=== PATIENT | male | born 1970 | race Two or more races ===

== ENCOUNTER 2022-09-17 06:19 | Inpatient (IN) | payer MEDICAID, OTHER ==
[~2022-09-17] VITALS: Ht 180.3 cm; Wt 72.8 kg
[2022-09-17 07:44] LABS: Basophils # (auto) 0 10 ^3/uL (0-0.2); Basophils % (auto) 0.5 % (0.0-2.0); Eosinophils # (auto) 0 10 ^3/uL (0-0.8); Eosinophils % (auto) 0.7 % (0.0-7.0); Hemoglobin 13.7 g/dL (13.5-17.5); Lymphocytes # (auto) 1.3 10 ^3/uL (0.4-5.4); Lymphocytes % (auto) 17.3 % (10.0-50.0); Mean Corpuscular Volume 85.5 fL (80.0-100.0); Monocytes # (auto) 0.4 10 ^3/uL (0-1.3); Monocytes % (auto) 5.6 % (0.0-12.0); Neutrophils # (auto) 5.6 10 ^3/uL (1.6-8.6); Neutrophils % (auto) 75.9 % (37.0-80.0); Nucleated Red Blood Cells % 0.2 %; Red Blood Cells 4.56 10^6/uL (4.5-5.90); Red Cell Distribution Width 12.8 % (11.8-14.3); White Blood Cell 7.3 10^3/uL (4.4-10.8)
[2022-09-17 07:59] LABS: Partial Thromboplastin Time 68.9 SEC (24.5-34.5)
[2022-09-17 08:03] LABS: INR 4.27 (0.9-1.15)
[2022-09-17 08:39] LABS: Albumin 3.5 g/dL (3.4-5.0); Calcium 9.6 mg/dL (8.5-10.1); Potassium 3.6 mmol/L (3.5-5.1)
[2022-09-17 08:43] LABS: Bilirubin, Total 0.6 mg/dL (0.2-1.0); Total Protein 7.4 g/dL (6.4-8.2); Uric Acid 5.6 mg/dL (3.5-7.2)
[2022-09-17] MEDS ORDERED: PHYTONADIONE (VIT K)10 MG/ML 1ML VIAL SUBCUT ONE (09:15)
[2022-09-17] MEDS: ONDANSETRON HCL 4 MG/2 ML VIAL IV PRN ×2 (15:15→20:35)
[2022-09-17] MEDS: MORPHINE SULFATE INJ 2 MG/ml SYRG IV PRN ×2 (15:15→20:36)
[2022-09-17] MEDS: SODIUM CHLORIDE 0.9% 1,000 ML IV SCH ×2 (15:15→18:20)
[2022-09-17] MEDS: PIPERACILLIN-TAZOB 3.375GM 100 ML IV SCH ×2 (20:31→23:00)
[2022-09-18 00:40] VITALS: PULSE 86; RESP 20; O2SAT 100
[2022-09-18] MEDS ORDERED: WARF-66 PO (01:08)
[2022-09-18] MEDS: ONDANSETRON HCL 4 MG/2 ML VIAL IV PRN (01:52)
[2022-09-18] MEDS: MORPHINE SULFATE INJ 2 MG/ml SYRG IV PRN ×3 (02:00→11:08)
[2022-09-18] MEDS: SODIUM CHLORIDE 0.9% 1,000 ML IV SCH ×3 (02:54→19:20)
[2022-09-18 05:00] VITALS: BP 92/59; PULSE 105; RESP 20; TEMP 98.3; O2SAT 99
[2022-09-18] MEDS: PIPERACILLIN-TAZOB 3.375GM 100 ML IV SCH ×4 (05:49→23:03)
[2022-09-18 07:46] LABS: Basophils # (auto) 0.1 10 ^3/uL (0-0.2); Basophils % (auto) 1.2 % (0.0-2.0); Eosinophils # (auto) 0.1 10 ^3/uL (0-0.8); Eosinophils % (auto) 1.9 % (0.0-7.0); Hematocrit 36.8 % (41.0-53.0); Hemoglobin 12.7 g/dL (13.5-17.5); Lymphocytes # (auto) 0.8 10 ^3/uL (0.4-5.4); Lymphocytes % (auto) 11.6 % (10.0-50.0); Mean Corpuscular Hemoglobin 29.7 pg (28.0-32.0); Mean Corpuscular Hgb Conc. 34.4 g/dL (32.0-36.0); Mean Corpuscular Volume 86.1 fL (80.0-100.0); Monocytes # (auto) 0.2 10 ^3/uL (0-1.3); Monocytes % (auto) 3.4 % (0.0-12.0); Neutrophils # (auto) 5.3 10 ^3/uL (1.6-8.6); Neutrophils % (auto) 81.9 % (37.0-80.0); Nucleated Red Blood Cells % 0.1 %; Red Blood Cells 4.27 10^6/uL (4.5-5.90); Red Cell Distribution Width 13.1 % (11.8-14.3); White Blood Cell 6.5 10^3/uL (4.4-10.8)
[2022-09-18 08:00] VITALS: BP 146/94; PULSE 84; RESP 18; TEMP 99; O2SAT 97
[2022-09-18 08:05] LABS: Potassium 3.9 mmol/L (3.5-5.1)
[2022-09-18 08:17] LABS: Albumin 3.1 g/dL (3.4-5.0); Bilirubin, Total 0.9 mg/dL (0.2-1.0); Calcium 8.9 mg/dL (8.5-10.1)
[2022-09-18 08:44] LABS: INR 1.45 (0.9-1.15)
[2022-09-18 09:24] LABS: Urine Bacteria FEW /hpf (None Seen); Urine Blood TRACE /uL (Negative); Urine Hyaline Cast FEW /lpf (0 - 2); Urine Mucus FEW (None Seen); Urine Specific Gravity 1.013 (1.001-1.035); Urine WBC <1 /hpf (0 - 3)
[2022-09-18 12:00] VITALS: BP 146/91; PULSE 85; RESP 16; TEMP 98.3; O2SAT 99
[2022-09-18] MEDS: OXYCODONE W/ ACETAMINOPHEN 5/325MG TABLET PO PRN ×3 (13:19→21:49)
[2022-09-18 16:00] VITALS: BP 129/83; PULSE 89; RESP 18; TEMP 97.7; O2SAT 94
[2022-09-18 22:00] VITALS: BP 147/93; PULSE 103; RESP 17; TEMP 97.8; O2SAT 95
[2022-09-19] MEDS: SODIUM CHLORIDE 0.9% 1,000 ML IV SCH ×3 (03:40→20:44)
[2022-09-19] MEDS: OXYCODONE W/ ACETAMINOPHEN 5/325MG TABLET PO PRN ×3 (03:48→18:47)
[2022-09-19 05:00] VITALS: BP 129/97; PULSE 91; RESP 18; TEMP 98.2; O2SAT 98
[2022-09-19] MEDS: PIPERACILLIN-TAZOB 3.375GM 100 ML IV SCH ×3 (05:11→18:38)
[2022-09-19 08:05] VITALS: PULSE 88; RESP 18; O2SAT 98
[2022-09-19 08:52] VITALS: BP 127/76; PULSE 69; RESP 14; TEMP 97.9; O2SAT 98
[2022-09-19 13:00] VITALS: BP 132/92; PULSE 103; RESP 14; TEMP 98.4; O2SAT 97
[2022-09-19 16:53] VITALS: BP_SYST 107; BP_SYST 130; BP_DIAS 80; BP_DIAS 81; PULSE 108; RESP 16; TEMP 97.7; O2SAT 98
[2022-09-19 22:00] VITALS: BP 134/86; PULSE 66; RESP 19; TEMP 98.4; O2SAT 95
[2022-09-20] VITALS (7 sets, daily range): BP systolic 114–124; BP diastolic 76–87; PULSE 88–103; RESP 18–20; TEMP 98.2–98.3; O2SAT 96–98
[2022-09-20] MEDS: OXYCODONE W/ ACETAMINOPHEN 5/325MG TABLET PO PRN ×5 (00:18→22:59)
[2022-09-20] MEDS: SODIUM CHLORIDE 0.9% 1,000 ML IV SCH ×3 (00:20→23:00)
[2022-09-20] MEDS: PIPERACILLIN-TAZOB 3.375GM 100 ML IV SCH ×4 (01:14→18:31)
[2022-09-21] MEDS: PIPERACILLIN-TAZOB 3.375GM 100 ML IV SCH ×4 (01:23→19:37)
[2022-09-21 05:00] VITALS: BP 120/73; PULSE 89; RESP 19; TEMP 98.2; O2SAT 99
[2022-09-21] MEDS: OXYCODONE W/ ACETAMINOPHEN 5/325MG TABLET PO PRN ×4 (05:09→22:01)
[2022-09-21] MEDS: SODIUM CHLORIDE 0.9% 1,000 ML IV SCH ×3 (06:20→22:02)
[2022-09-21 09:35] VITALS: BP 117/82; PULSE 95; RESP 20; TEMP 98; O2SAT 97
[2022-09-21 09:43] LABS: INR 1.05 (0.9-1.15); Partial Thromboplastin Time 29.5 SEC (24.5-34.5)
[2022-09-21 13:00] VITALS: BP 123/85; PULSE 100; RESP 20; TEMP 98; O2SAT 97
[2022-09-21 16:20] VITALS: BP 113/86; PULSE 91; RESP 20; TEMP 98.3; O2SAT 96
[2022-09-21] MEDS ORDERED: WARFARIN SODIUM 5 MG TAB PO ONE (17:00)
[2022-09-21 20:00] VITALS: PULSE 90; RESP 17; O2SAT 97
[2022-09-21 22:00] VITALS: BP 114/83; PULSE 93; RESP 17; TEMP 98.5; O2SAT 97
[2022-09-22] MEDS: OXYCODONE W/ ACETAMINOPHEN 5/325MG TABLET PO PRN ×5 (01:42→21:02)
[2022-09-22] MEDS: PIPERACILLIN-TAZOB 3.375GM 100 ML IV SCH ×4 (01:42→18:46)
[2022-09-22 05:00] VITALS: BP 119/80; PULSE 95; RESP 17; TEMP 98.2; O2SAT 96
[2022-09-22 05:39] LABS: Basophils # (auto) 0 10 ^3/uL (0-0.2); Basophils % (auto) 0.4 % (0.0-2.0); Eosinophils # (auto) 0.1 10 ^3/uL (0-0.8); Eosinophils % (auto) 1.7 % (0.0-7.0); Hematocrit 40.2 % (41.0-53.0); Hemoglobin 13.9 g/dL (13.5-17.5); Lymphocytes # (auto) 1.6 10 ^3/uL (0.4-5.4); Lymphocytes % (auto) 18.8 % (10.0-50.0); Mean Corpuscular Hemoglobin 29.8 pg (28.0-32.0); Mean Corpuscular Hgb Conc. 34.5 g/dL (32.0-36.0); Mean Corpuscular Volume 86.2 fL (80.0-100.0); Monocytes # (auto) 0.6 10 ^3/uL (0-1.3); Monocytes % (auto) 7.3 % (0.0-12.0); Neutrophils # (auto) 6.2 10 ^3/uL (1.6-8.6); Neutrophils % (auto) 71.8 % (37.0-80.0); Nucleated Red Blood Cells % 0.1 %; Red Blood Cells 4.66 10^6/uL (4.5-5.90); White Blood Cell 8.6 10^3/uL (4.4-10.8)
[2022-09-22 06:05] LABS: INR 1.05 (0.9-1.15); Partial Thromboplastin Time 29.9 SEC (24.5-34.5)
[2022-09-22] MEDS: SODIUM CHLORIDE 0.9% 1,000 ML IV SCH ×2 (06:06→15:00)
[2022-09-22 09:00] VITALS: BP 126/86; PULSE 95; RESP 20; TEMP 98.7; O2SAT 95
[2022-09-22 13:06] VITALS: BP 140/94; PULSE 96; RESP 20; TEMP 98; O2SAT 98
[2022-09-22 16:58] VITALS: BP 126/87; PULSE 88; RESP 20; TEMP 98.6; O2SAT 98
[2022-09-22] MEDS ORDERED: WARFARIN SODIUM 5 MG TAB PO ONE (17:00)
[2022-09-22 20:00] VITALS: PULSE 90; RESP 17; O2SAT 97
[2022-09-22 22:00] VITALS: BP 123/89; PULSE 98; RESP 18; TEMP 98.3; O2SAT 97
[2022-09-22] MEDS ORDERED: ENOXAPARIN SOD 80 MG/0.8ML SYRINGE SC SCH (22:00)
[2022-09-23] MEDS: SODIUM CHLORIDE 0.9% 1,000 ML IV SCH (00:23)
[2022-09-23] MEDS: PIPERACILLIN-TAZOB 3.375GM 100 ML IV SCH ×2 (00:24→05:53)
[2022-09-23] MEDS: OXYCODONE W/ ACETAMINOPHEN 5/325MG TABLET PO PRN ×2 (01:28→05:52)
[2022-09-23 05:00] VITALS: BP 122/78; PULSE 89; RESP 18; TEMP 97.9; O2SAT 94
[2022-09-23 06:51] LABS: INR 1.18 (0.9-1.15); Partial Thromboplastin Time 34.2 SEC (24.5-34.5)
[2022-09-23 08:00] VITALS: PULSE 106; RESP 18; O2SAT 96
[2022-09-23 08:40] VITALS: BP 132/87; PULSE 106; RESP 18; TEMP 97.8; O2SAT 96
[2022-09-23] MEDS ORDERED: WARFARIN SODIUM 5 MG TAB PO ONE (17:00)
== END 2022-09-23 12:42 | disposition left against medical advice (07) | DRG 351 ==
LOC: ER 06:19 → OVERFLOW 09:53 → WEST WING 23:33
PROVIDERS: ADMIT Internal Medicine; ATTEND Internal Medicine
DX: M25.062 Hemarthrosis, left knee (principal); E44.1 Mild protein-calorie malnutrition; T45.515A Adverse effect of anticoagulants, initial encounter; G89.29 Other chronic pain; Z53.29 Procedure and treatment not carried out because of patient's decision for other reasons; M25.462 Effusion, left knee; M17.12 Unilateral primary osteoarthritis, left knee; Z95.2 Presence of prosthetic heart valve; Z80.1 Family history of malignant neoplasm of trachea, bronchus and lung; Z79.01 Long term (current) use of anticoagulants; Z91.199 Patient's noncompliance with other medical treatment and regimen due to unspecified reason; Y92.89 Other specified places as the place of occurrence of the external cause; Z68.22 Body mass index [BMI] 22.0-22.9, adult
CPT/HCPCS: 36415; 73562; 73700; 80053; 81001; 84484; 84550; 85025; 85610; 85652; 85730; 86141; 87205; 89051; 96372; G0378; J2405; J2543; J3430